=== PATIENT | female | born 1995 | race Caucasian/White ===

== ENCOUNTER 2016-12-19 05:34 | Inpatient (IN) | payer MEDICAID ==
[2016-12-19] VITALS (19 sets, daily range): BP systolic 91–133; BP diastolic 42–77; PULSE 62–93; TEMP 97.8–98.4
[~2016-12-19] VITALS: Ht 149.9 cm; Wt 100.0 kg
[~2016-12-19 05:34] MED LIST: MOTRIN 800800 MG/TAB PO; PERCOCET 325 MG1 TA2 PO
[2016-12-19] MEDS ORDERED: PRENATAL (06:26)
[2016-12-19 06:39] LABS: BASO # 0.1 (0.0-0.2); BASO % 0.4 % (0.0-2.0); EOS # 0.1 (0.0-0.7); EOS % 1.1 % (0-4.0); GRAN # 7.2 (1.4-6.5); GRAN % 64.3 % (42.2-75.2); LYMPH % 26.9 % (20.0-51.0); MEAN CELL VOLUME 88 fl (80.0-100.0); MEAN CORPUSCULAR HGB CONC 34 g/dl (33.0-37.0); MEAN PLATELET VOLUME 10.8 fl (7.4-10.4); MONO # 0.7 (0.1-0.6); MONO % 6.3 % (1.7-9.3); PLATELET COUNT 289 K/mm3 (130-400); RED BLOOD COUNT 3.97 M/mm3 (4.10-5.30); REDCELL DISTRIBUTION WIDTH-CV 14.6 % (11.5-14.5); WHITE BLOOD COUNT 11.2 K/mm3 (4.8-10.8)
[2016-12-19 06:41] LABS: HEMOGLOBIN 11.9 g/dl (12.5-16.0); MEAN CORPUSCULAR HEMOGLOBIN 30 pg (27.0-31.0)
[2016-12-20 03:45] VITALS: BP 99/57; PULSE 72; TEMP 97.8
[2016-12-20 07:52] VITALS: BP 118/61; PULSE 88; TEMP 98.1
[2016-12-20 16:26] VITALS: BP 100/52; PULSE 76; TEMP 97.8
[2016-12-20 20:30] VITALS: BP 119/58; PULSE 89; TEMP 97.6
[2016-12-21 07:05] VITALS: BP 129/67; PULSE 69; TEMP 97.9
[2016-12-21] MEDS ORDERED: PERCOCET 325 MG1 TA2 PO ×2 (10:03→12:23)
[2016-12-21] MEDS ORDERED: MOTRIN 800800 MG/TAB PO (10:03)
== END 2016-12-21 13:40 | disposition home or self-care (01) | DRG 766 ==
LOC: OB 05:34
PROVIDERS: Obstetrics & Gynecology
PROC: 10D00Z1 Extraction of Products of Conception, Low, Open Approach (ICD-10-PCS; principal; 2016-12-19)
DX: O34.211 Maternal care for low transverse scar from previous cesarean delivery (principal); N85.8 Other specified noninflammatory disorders of uterus; Z3A.39 39 weeks gestation of pregnancy; Z37.0 Single live birth
CPT/HCPCS: J0690; J1885; J2270; J2370; J2405; J2590; J7120